=== PATIENT | male | born 1980 ===

== ENCOUNTER 2019-06-07 22:01 | Emergency (ER) | payer SELFPAY ==
--- NOTE | 2019-06-07 22:45 | EDM.PDOC ---
ED [facility] GENERAL MEDICAL PROBLEM - General Chief Complaint: Upper Extremity Injury/Pain Stated Complaint: POSSIBLE HAND FRAC. Time Seen by Provider: 06/07/19 22:43 Source of Information: Reports: Patient History Limitations: Reports: No Limitations - History of Present Illness INITIAL COMMENTS - FREE TEXT/NARRATIVE: Patient is a 39-year-old male with no significant past medical history presenting with a chief complaint of bilateral thumb pain. Patient states that 2 days ago he injured his right thumb with a drill and has been experiencing pain ever since. The pain does not radiate. Patient is worried worse with some movement. Patient states he additionally injured his left thumb yesterday when he struck it with a hammer by accident. Patient additionally has no other injuries. Patient states that pain is worse with movement and not improved with anything. Patient states the pain in the right hand is more severe than left hand. Pmhx: None Pshx: None Family Hx: noncontributory Smoking history? no Etoh use? none Drug use? none In addition to that documented in the HPI above, the additional ROS was obtained : Constitutional: Denies fevers or chills Eyes: Denies vision changes ENMT: Denies sore throat CV: Denies chest pain Resp: Denies SOB GI: Denies vomiting or diarrhea : Denies painful urination MSK: Denies recent trauma Skin: Denies new rashes Neuro: Denies new numbness or tingling or weakness Endocrine: Denies unexpected weight loss Heme: Denies bleeding disorders I have reviewed the triage vital signs Const: Well nourished, well developed, appears stated age Eyes: PERRL, no conjunctival injection HENT: NCAT, Neck supple without meningismus CV: RRR, Warm, well-perfused extremities MSK: No anatomic snuffbox tenderness. Tender palpation of the right thenar eminence no obvious deformities or swelling. Minimal tenderness of the left thenar eminence on the left hand. No gross deformities appreciated Skin: Warm, dry. No rashes Neuro: Alert, crumb packer II-XII grossly intact. Sensation and motor function of extremities grossly intact. Psych: Appropriate mood and affect Assessment and plan: Patient is 39-year-old male presenting with bilateral thumb injuries. Patient has no evidence of fracture on hand x-rays. No other evidence of any other injuries. Patient was offered pain medication but refused. Patient given education regarding care of sprains. All questions addressed and answered. Patient agrees with plan. Return precautions given. Very unlikely that this is a undiagnosed scaphoid fracture based on mechanism. Bilateral Hand Pain Score (Numeric/FACES): 6 - Related Data Allergies Allergy/AdvReac Type Severity Reaction Status Date / Time amoxicillin [Amoxicillin] Allergy Swelling Verified 06/07/19 22:38 Home Meds: Home Meds . [No Known Home Meds] 08/31/13 [History] Review of Systems - Review of Systems Review Of Systems: See Below ED EXAM, GENERAL - Physical Exam Exam: See Below Course - Vital Signs Last Recorded V/S: Last Vital Signs Temp 36.1 C 06/07/19 22:36 Pulse 71 06/07/19 22:36 Resp 14 06/07/19 22:36 BP 118/66 06/07/19 22:36 Pulse Ox 96 06/07/19 22:36 Departure - Departure Time of Disposition: 23:35 Disposition: Home, Self-Care 01 Clinical Impression: Thumb sprain - Discharge Information Referrals: PCP,None [Primary Care Provider] - Forms: ED Department Discharge Sepsis Event Note - Evaluation Sepsis Screening Result: No Definite Risk - Focused Exam Vital Signs: Vital Signs Temp Pulse Resp BP Pulse Ox 06/07/19 22:36 36.1 C 71 14 118/66 96 Date Exam was Performed: 06/07/19 Time Exam was Performed: 23:43
--- NOTE | 2019-06-07 23:29 | CR ---
Indication: Bilateral thumb injuries Technique: Three views bilateral hands Comparison: None Findings: Bones: Alignment is normal. No acute fractures or bone lesions. Old right ulnar styloid process and right triquetrum fractures. Joint spaces: Mild degenerative changes in the right triscaphe and CMC joints. Soft tissues: Unremarkable. Impression: No acute abnormality. Mild degenerative changes in the right triscaphe and CMC joints. Old right ulnar styloid process and right triquetrum fractures. Dictated by Leti Nickerson MD @ Jun 07 2019 11:23PM Signed by Dr. Leti Nickerson @ Jun 07 2019 11:28PM
== END 2019-06-07 23:54 | disposition home or self-care (01) ==
LOC: MW.ED 22:01
DX: S63.602A Unspecified sprain of left thumb, initial encounter (principal); S63.601A Unspecified sprain of right thumb, initial encounter; W22.8XXA Striking against or struck by other objects, initial encounter; Z88.1 Allergy status to other antibiotic agents
CPT/HCPCS: 731302650; 73130-50; 99282; 99283-25

== ENCOUNTER 2021-12-16 15:21 | Emergency (ER) | payer SELFPAY ==
[2021-12-16] MEDS ORDERED: Bupivacaine 0.25% 10 ML SDV INJECT ONE (16:31)
[2021-12-16] MEDS ORDERED: Lidocaine 1% 5 ML VIAL INJECT ONE (16:31)
[2021-12-16] MEDS ORDERED: Lidocaine 1% 5 ML VIAL ONE (16:33)
[2021-12-16] MEDS ORDERED: Bupivacaine 0.25% 10 ML SDV ONE (16:33)
[2021-12-16] MEDS ORDERED: Bacitracin Oint 1 GM U/D Packet TOP ONE (17:01)
== END 2021-12-16 17:26 | disposition home or self-care (01) ==
LOC: MW.ED 15:21
DX: S61.211A Laceration without foreign body of left index finger without damage to nail, initial encounter (principal); Z72.0 Tobacco use; Z88.0 Allergy status to penicillin; W26.8XXA Contact with other sharp object(s), not elsewhere classified, initial encounter
CPT/HCPCS: 12001; 99282; J3490